=== PATIENT | female | born 1990 | race African-American/Black ===

== ENCOUNTER 2016-10-20 20:37 | Emergency (ER) | payer MEDICAID ==
[~2016-10-20] VITALS: Ht 172.7 cm; Wt 104.3 kg
[2016-10-20 20:40] VITALS: BP 122/69
[2016-10-21] MEDS ORDERED: NAPROXEN 500 MG TAB PO ONE (00:30)
== END 2016-10-21 00:30 | disposition home or self-care (01) ==
LOC: ER 20:39
DX: M72.2 Plantar fascial fibromatosis (principal)

== ENCOUNTER 2018-03-13 13:59 | Emergency (ER) | payer MEDICAID ==
[~2018-03-13] VITALS: Ht 170.2 cm; Wt 136.1 kg
[2018-03-13 15:18] LABS: Alanine Aminotransferase 23 U/L (13-56); Albumin 3.4 g/dL (3.4-5.0); Anion Gap 8 (5-15); Aspartate Aminotransferase 14 U/L (15-37); BUN/Creatinine Ratio 15.6; Basophils # (auto) 0.1 uL; Basophils % (auto) 0.6 % (0.0-2.0); Blood Urea Nitrogen 10 mg/dL (7-18); Calcium 8.1 mg/dL (8.5-10.1); Carbon Dioxide 22 mmol/L (21-32); Chloride 109 mmol/L (98-107); Eosinophils # (auto) 0 uL; GFR African American 145 mL/min; GFR Non-African American 120 mL/min; Glucose 111 mg/dL (74-106); Hematocrit 38.8 % (36.0-46.0); Hemoglobin 12.8 g/dL (12.2-16.2); Lymphocytes # (auto) 0.8 uL; Lymphocytes % (auto) 4.6 % (10.0-50.0); Magnesium 2.1 mg/dL (1.6-2.6); Mean Corpuscular Hemoglobin 28.4 pg (28.0-32.0); Mean Corpuscular Hgb Conc. 33.1 g/dL (32.0-36.0); Mean Corpuscular Volume 85.7 fL (80.0-100.0); Monocytes # (auto) 1.1 uL; Monocytes % (auto) 6.7 % (0.0-12.0); Neutrophils # (auto) 14.7 uL; Neutrophils % (auto) 88.1 % (37.0-80.0); Platelet Count (auto) 350 10^3/uL (140-450); Potassium 4.1 mmol/L (3.5-5.1); Red Blood Cells 4.52 10^6/uL (4.0-5.20); Red Cell Distribution Width 13.9 % (11.8-14.3); Sodium 139 mmol/L (136-145); White Blood Cell 16.7 10^3/uL (4.4-10.8)
[2018-03-13 15:24] LABS: Alkaline Phosphatase 58 U/L (45-117); Bilirubin, Total 0.2 mg/dL (0.2-1.0); Total Protein 7.5 g/dL (6.4-8.2)
[2018-03-13 16:43] LABS: Urine WBC None Seen /hpf (0 - 5)
[2018-03-13 17:18] LABS: Urine Bacteria FEW /hpf (None Seen); Urine Blood Negative /uL (Negative); Urine Mucus FEW (None Seen); Urine Specific Gravity 1.021 (1.001-1.035)
[2018-03-13 18:00] VITALS: BP 118/73
== END 2018-03-13 18:53 | disposition home or self-care (01) ==
LOC: ER 13:59 → EDBD 13:59 → ER 18:53
DX: F41.1 Generalized anxiety disorder (principal); R06.4 Hyperventilation; E66.01 Morbid (severe) obesity due to excess calories; Z68.42 Body mass index [BMI] 45.0-49.9, adult
CPT/HCPCS: 36415; 70450; 71045; 80053; 81001; 83036; 83735; 84484; 84702; 85025; 93005

== ENCOUNTER 2018-06-05 18:55 | Emergency (ER) | payer MEDICAID ==
[~2018-06-05] VITALS: Ht 172.7 cm; Wt 122.5 kg
[2018-06-05 19:10] VITALS: BP 119/63
[2018-06-05] MEDS ORDERED: cefTRIAXone SOD 1,000 MG VL IM ONE (21:15)
== END 2018-06-05 22:02 | disposition home or self-care (01) ==
LOC: ER 18:55
DX: J06.9 Acute upper respiratory infection, unspecified (principal)
CPT/HCPCS: 96372; 99283; J0696

== ENCOUNTER 2020-04-23 21:51 | Emergency (ER) | payer MEDICAID ==
[~2020-04-23] VITALS: Ht 172.7 cm; Wt 131.5 kg
[2020-04-23 23:32] VITALS: BP 112/70
== END 2020-04-24 02:06 | disposition home or self-care (01) ==
LOC: ER 21:52
DX: U07.1 COVID-19 (principal); J06.9 Acute upper respiratory infection, unspecified
CPT/HCPCS: 36415; 71045; 87426

== ENCOUNTER 2022-04-13 03:51 | Emergency (ER) | payer MEDICAID ==
[~2022-04-13] VITALS: Ht 172.7 cm; Wt 131.5 kg
[2022-04-13 07:39] VITALS: BP 129/97
[2022-04-13] MEDS ORDERED: AZITTAB PO (08:10)
== END 2022-04-13 08:39 | disposition home or self-care (01) ==
LOC: ER 03:56
DX: J06.9 Acute upper respiratory infection, unspecified (principal)
CPT/HCPCS: 71046